=== PATIENT | female | born 1945 | race Hispanic/Latino ===

== ENCOUNTER → 2018-05-31 | Day surgery (SDC) | payer MEDICARE ==
[~2018-05-31] MED LIST: CLONAZEPAM0.5 MG PO; ENZYMATIC DIGE1 EACH; FENTANYL CITRATE/PF 100MCG/2 ML INJ ONE; MIDAZOLAM HCL 2 MG/2 ML VIAL ONE; MUCINEX DM ER1 EACH PO; MULTI-VITAMIN1 EACH; OR PHACO EYE KIT ONE; PREOP PHACO EYE KIT ONE; PROGESTERONE CREAM; PROZAC10 MG; SYNTHROID88 MCG PO; TOBRAMYCIN 0.3% OPTH OINT 3.5 GM TUBE ONE; VITAMIN B COMPLEX; VITAMIN D400 UNIT PO; ZYRTEC10 M3; [UNRECOGNIZED DRUG - OTHER]
[2018-05-31 14:50] VITALS: BP 147/76
== END | disposition home or self-care (01) ==
LOC: OR 11:20
PROVIDERS: ATTEND Ophthalmology
DX: H25.12 Age-related nuclear cataract, left eye (principal); N39.0 Urinary tract infection, site not specified; M19.90 Unspecified osteoarthritis, unspecified site; E03.9 Hypothyroidism, unspecified; K21.9 Gastro-esophageal reflux disease without esophagitis; K58.9 Irritable bowel syndrome, unspecified; G47.33 Obstructive sleep apnea (adult) (pediatric); M79.7 Fibromyalgia; F32.9 Major depressive disorder, single episode, unspecified; F41.9 Anxiety disorder, unspecified; Z88.6 Allergy status to analgesic agent; Z88.1 Allergy status to other antibiotic agents; Z88.0 Allergy status to penicillin
CPT/HCPCS: 66984; J2250; V2632